=== PATIENT | female | born 1930 | race Caucasian/White ===

== ENCOUNTER 2022-02-28 09:09 | Emergency (ER) | payer MEDICARE, OTHER ==
[~2022-02-28] VITALS: Ht 165.1 cm; Wt 72.7 kg
[~2022-02-28 09:09] MED LIST: DOXE10CA42 PO; IPRA4AER IH; LISI-894 PO; METF-1211 PO
[2022-02-28 09:24] VITALS: BP 137/87
== END 2022-02-28 11:04 | disposition home or self-care (01) ==
LOC: EMS 10:01
DX: S91.204A Unspecified open wound of right lesser toe(s) with damage to nail, initial encounter (principal); E11.9 Type 2 diabetes mellitus without complications; J45.909 Unspecified asthma, uncomplicated; I10 Essential (primary) hypertension; W01.0XXA Fall on same level from slipping, tripping and stumbling without subsequent striking against object, initial encounter; Y93.89 Activity, other specified; Y92.89 Other specified places as the place of occurrence of the external cause; Y99.8 Other external cause status; Z88.2 Allergy status to sulfonamides
CPT/HCPCS: 82962; 99281

== ENCOUNTER 2022-03-05 22:35 | Emergency (ER) | payer MEDICARE, OTHER ==
[~2022-03-05] VITALS: Ht 162.6 cm; Wt 63.0 kg
[2022-03-05 23:15] LABS: COVID AG,FIA SOURCE NASOPHARYNGEAL
[2022-03-05 23:17] LABS: INFLUENZA TYPE B NEGATIVE FOR TYPE B (NEGATIVE)
[2022-03-05 23:44] LABS: INFLUENZA TYPE A POSITIVE FOR TYPE A (NEGATIVE)
[2022-03-06 00:06] LABS: APPEARANCE,URINE HAZY (CLEAR); BILIRUBIN,URINE NEGATIVE (NEGATIVE); GLUCOSE, URINE (UA) NEGATIVE (NEGATIVE); LEUKOCYTE ESTERASE ,URINE LARGE (NEGATIVE); NITRATE,URINE POSITIVE (NEGATIVE); OCCULT BLOOD,URINE SMALL (NEGATIVE); PH,URINE 5.5 (5.0-8.0); PROTEIN,URINE 30-70 mg/dL (NEGATIVE); SPECIFIC GRAVITIY, URINE 1.025 (1.003-1.030); UROBILINOGEN,URINE <=1.0 mg/dL (<=1.0)
[2022-03-06 00:16] LABS: BACTERIA,URINE Few /HPF (None Seen); RBC,URINE 0-2 /HPF (0-2); SQUAMOUS EPITHELIAL CELL,UR Few /LPF (None Seen)
[2022-03-06] MEDS ORDERED: CEPH-558 PO (00:56)
[2022-03-06] MEDS ORDERED: BENZ-70 PO (00:56)
[2022-03-06 01:26] VITALS: BP 141/90
== END 2022-03-06 01:45 | disposition home or self-care (01) ==
LOC: EMS 22:36
DX: J10.1 Influenza due to other identified influenza virus with other respiratory manifestations (principal); N39.0 Urinary tract infection, site not specified; J45.909 Unspecified asthma, uncomplicated; E11.9 Type 2 diabetes mellitus without complications; I10 Essential (primary) hypertension; Z88.2 Allergy status to sulfonamides; Z88.8 Allergy status to other drugs, medicaments and biological substances; Z20.822 Contact with and (suspected) exposure to COVID-19
CPT/HCPCS: 71045; 81001; 87086; 87186; 87804; 99284

== ENCOUNTER 2022-03-07 07:50 | Emergency (ER) | payer MEDICARE, OTHER ==
[~2022-03-07] VITALS: Ht 160 cm; Wt 58.6 kg
[~2022-03-07 07:50] MED LIST changes: +BENZ-70 PO; +CEPH-558 PO
[2022-03-07 08:05] VITALS: BP 110/71
== END 2022-03-07 09:05 | disposition home or self-care (01) ==
LOC: EMS 07:59
DX: J10.1 Influenza due to other identified influenza virus with other respiratory manifestations (principal); N39.0 Urinary tract infection, site not specified; J45.909 Unspecified asthma, uncomplicated; E11.9 Type 2 diabetes mellitus without complications; I10 Essential (primary) hypertension; Z88.2 Allergy status to sulfonamides
CPT/HCPCS: 99284; Z7502